=== PATIENT | female | born 1995 | race African-American/Black ===

== ENCOUNTER 2020-04-10 11:21 | Emergency (ER) | payer OTHER, SELFPAY ==
[2020-04-10 11:32] VITALS: BP 132/95; PULSE 98; RESP 16; TEMP 36.7; O2SAT 97
--- NOTE | 2020-04-10 13:14 | ED.GENADULT ---
HPI - General Adult General Chief complaint: Upper Respiratory Infection <Nadine Eid PA-C - Last Filed: 04/10/20 13:24> Stated complaint: lost taste, uri symptoms <Nadine Eid PA-C - Last Filed: 04/10/20 13:24> Time Seen by Provider: 04/10/20 11:49 <LEIDY Mendiola Last Filed: 04/10/20 13:24> Source: patient <LEIDY Mendiola Last Filed: 04/10/20 13:24> Mode of arrival: ambulatory <LEIDY Mendiola Last Filed: 04/10/20 13:24> Limitations: no limitations <LEIDY Mendiola Last Filed: 04/10/20 13:24> History of Present Illness HPI narrative: Patient presents with chief complaint of concern for Covid due to progression of symptoms from runny nose, congestion, slight cough, loss of taste or smell that began on last Wednesday. Patient states that she was due to be Covid tested but the appointment was canceled. Patient denies chest pain, shortness of breath, fever, chills, nausea, vomiting patient states she does not have cough at this time. Patient denies having any pulmonary conditions. Patient denies any other symptoms or concerns. Patient is unsure if she has been in close contact with a Covid positive person. <Nadine Eid PA-C - Last Filed: 04/10/20 13:24> Related Data Home medications: Home Medications Medication Instructions Recorded Confirmed No Home Medications 04/10/20 04/10/20 <LEIDY Mendiola Last Filed: 04/10/20 13:24> Allergies/adverse reactions: Allergies Allergy/AdvReac Type Severity Reaction Status Date / Time [place] Allergy Unknown Other Uncoded 04/10/20 11:36 <LEIDY Mendiola Last Filed: 04/10/20 13:24> Review of Systems Review of Systems: Narrative: CONSTITUTIONAL: Reports loss of taste and smell denies fever, chills, or sweats. EYES: Denies visual changes, redness, or discharge. ENT: Reports rhinorrhea, congestion, denies sore throat, or otalgia. CARDIOVASCULAR: Denies chest pain, palpitations, or edema. RESPIRATORY: Denies current cough or dyspnea at any time. GASTROINTESTINAL: Denies abdominal pain, nausea, vomiting, or diarrhea. GENITOURINARY: Denies dysuria or hematuria. SKIN: Denies rash or itching. MUSCULOSKELETAL: Denies back pain, myalgia, or joint pain NEUROLOGIC: Denies current headache, numbness, dizziness, or weakness. PSYCHIATRIC: Denies anxiety or depression. <Nadine Eid PA-C - Last Filed: 04/10/20 13:24> Exam Narrative: Exam Narrative: GENERAL: Well-appearing, well-nourished, and in no acute distress. HEAD: Normocephalic, atraumatic. EYES: PERRLA and EOMI. ENT: Nares clear, no rhinorrhea or epistaxis. Mucous membranes moist. Oropharynx without tonsillar hypertrophy exudate or other lesions. Bilateral TMs pearly reed nonbulging NECK: Supple. No adenopathy or masses. CHEST: Clear to auscultation. No respiratory distress. No wheezes rales or rhonchi. No tachypnea or wheezing. HEART: Regular rate and rhythm. Normal peripheral pulses. EXTREMITIES: Normal range of motion. No edema. SKIN: Warm, dry, no rash. NEURO: No focal deficits. Alert and oriented x3. PSYCH: Normal mood and affect. <Nadine Eid PA-C - Last Filed: 04/10/20 13:24> Course Vital Signs Vital signs: Vital Signs Temperature 36.7 C 04/10/20 11:32 Pulse Rate 98 04/10/20 11:32 Respiratory Rate 16 04/10/20 11:32 Blood Pressure 132/95 H 04/10/20 11:32 Pulse Oximetry 97 04/10/20 11:32 Temperature 36.7 C 04/10/20 11:32 Pulse Rate 98 04/10/20 11:32 Respiratory Rate 16 04/10/20 11:32 Blood Pressure 132/95 H 04/10/20 11:32 Pulse Oximetry 97 04/10/20 11:32 <LEIDY Mendiola Last Filed: 04/10/20 13:24> Vital Signs Temperature 36.7 C 04/10/20 11:32 Pulse Rate 98 04/10/20 11:32 Respiratory Rate 16 04/10/20 11:32 Blood Pressure 132/95 H 04/10/20 11:32 Pulse Oximetry 97 04/10/20 11:32 Temperature 36.7 C 04/10/20 11:32 Puls
[2020-04-10 22:40] LABS: SARS-CoV-2 RNA PCR Positive
== END 2020-04-10 13:38 | disposition home or self-care (01) ==
PROVIDERS: Physician Assistant; Emergency Provider Emergency Medicine
DX: U07.1 COVID-19 (principal)
CPT/HCPCS: 87635; 87804; 99283; C9803; U0003

== ENCOUNTER 2020-06-15 13:39 | Emergency (ER) | payer SELFPAY ==
--- NOTE | ~2020-06-15 | XR_ITS ---
EXAMINATION: XR chest 1V portable INDICATION: Shortness of breath TECHNIQUE: Portable AP chest at 1530 hours COMPARISON: None available FINDINGS: The lungs are free of acute opacities. There is no pleural effusion or pneumothorax. The ca rdiomediastinal silhouette is normal. The visualized osseous structures are unremarkable. IMPRESSION: 1. No acute cardiopulmonary abnormality. Reviewed, dictated and finalized at location A. [employer]
[2020-06-15 13:53] VITALS: BP 118/67; PULSE 96; RESP 16; TEMP 36.6; O2SAT 100
[2020-06-15 15:18] LABS: Basophils Percent Auto 0.5 % (0.2-1.2); Eosinophils Absolute Auto 0.3 K/mm3 (0-0.3); Eosinophils Percent Auto 2.9 % (0-4.4); Hemoglobin 10.9 g/dL (12.0-15.0); Immature Granulocyte Absolute 0.03 K/mm3 (0.00-0.031); Immature Granulocyte Percent A 0.4 % (0-0.5); Lymphocytes Absolute Auto 2.24 K/mm3 (0.9-3.2); Lymphocytes Percent Auto 26.2 % (18.3-44.2); Mean Corpuscular HGB Conc 31.1 g/dl (32-36); Mean Corpuscular Hemoglobin 25.7 pg (26-34); Mean Corpuscular Volume 82.5 fl (80-100); Mean Platelet Volume 8.4 fl (7.4-10.4); Monocytes Absolute Auto 0.7 K/mm3 (0.1-0.6); Monocytes Percent Auto 8.2 % (2.6-8.5); Neutrophils Absolute Auto 5.3 K/mm3 (1.3-6.7); Neutrophils Percent Auto 61.8 % (45.5-73.1); Platelet Count Result 484 k/mm3 (150-375); Red Blood Count 4.24 M/mm3 (4.2-5.4); Red Cell Distribution Width 14.4 % (11.5-14.5); White Blood Count 8.5 K/mm3 (4.5-10.0)
[2020-06-15] MEDS: KETOROLAC 30 MG/ML VIAL (*BKC) IV PUSH (15:36)
[2020-06-15 15:41] LABS: Alanine Aminotransferase 11 U/L (4-35); Albumin Level 3.9 g/dL (3.5-5.1); Alkaline Phosphatase 76 U/L (38-126); Anion Gap 7 mmol/L (8-16); Aspartate Amino Transferase 24 U/L (14-36); Bilirubin,Total 0.7 mg/dL (0.2-1.3); Blood Urea Nitrogen 8 mg/dL (7-17); CRP 6.2 mg/dL (<1.0); Calcium 9.4 mg/dL (8.4-10.2); Carbon Dioxide 27 mmol/L (22-30); Chloride 105 mmol/L (98-107); Estimated CRCL calculation 104 ml/min; Estimated Glomerular Filt Rate > 60; Glucose 88 mg/dL (65-105); Potassium 3.6 mmol/L (3.4-5.0); Sodium 139 mmol/L (137-145)
[2020-06-15 15:57] LABS: Erythrocyte Sedimentation Rate 25 mm/hr (0-20)
[2020-06-15 15:59] VITALS: BP 115/74; PULSE 70; RESP 12; O2SAT 99
[2020-06-15 16:00] LABS: Amphetamine Screen Urine Negative (Negative); Barbiturate Screen Urine Negative (Negative); Benzodiazepines Screen Urine Negative (Negative); Cannabinoid Screen Urine Negative (Negative); Cocaine Screen Urine Negative (Negative); Methadone Screen Urine Negative (Negative); Opiate Screen Urine Negative (Negative); Phencyclidine Screen Urine Negative (Negative)
[2020-06-15 16:02] LABS: Add Urine Microscopic? YES; Appearance Urine Clear (Clear); Bilirubin Urine Negative (Negative); Blood Urine Negative (Negative); Color Urine Yellow (Yellow); Glucose Urine UA Negative (Negative); Ketones Urine Trace mg/dL (Negative); Leukocyte Esterase Ur Negative LEU/UL (Negative); Mucus Urine Few /lpf; Nitrate Urine Negative (Negative); Protein Urine 1+ mg/dL (Negative); Squamous Epithelial Cell Urine Moderate /hpf (Few); Urobilinogen Urine Negative mg/dL (<2.0); WBC Urine 0-3 /hpf
--- NOTE | 2020-06-15 16:18 | ED.GENADULT ---
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 Been going for the last few weeks got worse over the last few days. History of rheumatoid arthritis, last time was seen and treated for rheumatoid arthritis over 1 year ago. Patient have no insurance to follow-up with a employment office clerk. Patient denies any fever, chills, nausea, vomiting. Related Data Allergies Allergy/AdvReac Type Severity Reaction Status Date / Time [place] Allergy Unknown Other Uncoded 04/10/20 11:36 Review of Systems Review of Systems: Narrative: CONSTITUTIONAL: Denies fever, chills, or sweats. EYES: Denies visual changes, redness, or discharge. ENT: Denies rhinorrhea, congestion, sore throat, or otalgia. CARDIOVASCULAR: Denies chest pain, palpitations, or edema. RESPIRATORY: Denies cough or dyspnea. GASTROINTESTINAL: Denies abdominal pain, nausea, vomiting, or diarrhea. GENITOURINARY: Denies dysuria or hematuria. SKIN: Denies rash or itching. MUSCULOSKELETAL: Denies back pain, joint pain, or myalgia. NEUROLOGIC: Denies headache, numbness, or weakness. PSYCHIATRIC: Denies anxiety or depression. Exam Narrative: Exam Narrative: General appearance: Well-developed, well-nourished Skin: Normal color Head: Normocephalic, nontraumatic Eyes: Clear conjunctiva ENT: Oropharynx normal, ears normal, nose normal Neck: Supple, nontender Chest and respiratory: Airway patent, no respiratory distress, no accessory muscle use Heart: Regular rate/rhythm Abdomen: Soft, nontender, no organomegaly, quiet bowel sounds Vascular: Normal peripheral pulses, normal capillary refill. 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 Labs, sed rate, PCR ordered. Further plan to follow Differential Diagnosis Differential Diagnosis: Rheumatoid arthritis flare, other autoimmune disease, connective tissue disease Vital Signs Vital Signs: Vital Signs Temperature 36.6 C 06/15/20 13:53 Pulse Rate 96 06/15/20 13:53 Respiratory Rate 16 06/15/20 13:53 Blood Pressure 118/67 06/15/20 13:53 Pulse Oximetry 100 06/15/20 13:53 Temperature 36.6 C 06/15/20 13:53 Pulse Rate 70 06/15/20 15:59 Respiratory Rate 12 06/15/20 15:59 Blood Pressure 115/74 06/15/20 15:59 Pulse Oximetry 99 06/15/20 15:59 Lab Data Result diagrams: 06/15/20 15:10 06/15/20 15:10 Labs: Lab Results 06/15/20 06/15/20 06/15/20 Range/Units 15:10 15:10 15:19 WBC 8.5 (4.5-10.0) K/mm3 RBC 4.24 (4.2-5.4) M/mm3 Hgb 10.9 L (12.0-15.0) g/dL Hct 35.0 L (37.0-47.0) % MCV 82.5 (80-100) fl MCH 25.7 L
== END 2020-06-15 16:30 | disposition home or self-care (01) ==
PROVIDERS: Emergency Provider Emergency Medicine
DX: M06.9 Rheumatoid arthritis, unspecified (principal)
CPT/HCPCS: 36415; 71045; 80053; 80307; 81001; 81025; 85025; 85652; 86140; 96374; 99284; J1885

== ENCOUNTER 2020-09-10 11:23 | Emergency (ER) | payer OTHER, SELFPAY ==
[2020-09-10 11:28] VITALS: BP 115/73; PULSE 99; RESP 18; TEMP 36.2; O2SAT 98
--- NOTE | 2020-09-10 12:17 | ED.GENADULT ---
HPI - General Adult General Chief complaint: Skin/Abscess/Foreign Body Stated complaint: right facial wound Time Seen by Provider: 09/10/20 11:35 Source: patient Mode of arrival: ambulatory Limitations: no limitations History of Present Illness HPI narrative: Patient presents with chief complaint of [place] coalesced lesions to her right cheek. Patient states that it started off as a small bump but has increased in size. Patient reports yellow crusting. Patient reports some mild itching. Patient denies fever, chills, nausea, vomiting, diarrhea or any other symptoms. Patient states that this is happened in the past she was prescribed antibiotic. Patient denies any other symptoms or concerns. Patient denies known history of MRSA. Related Data Home Medications Medication Instructions Recorded Confirmed etanercept [Enbrel] 25 mg SUBCUT WEEKLY 09/10/20 prednisone 1 mg PO DAILY 09/10/20 Allergies Allergy/AdvReac Type Severity Reaction Status Date / Time [place] Allergy Unknown Other Uncoded 04/10/20 11:36 Review of Systems Review of Systems: Narrative: CONSTITUTIONAL: Denies fever, chills, or sweats. EYES: Denies visual changes, redness, or discharge. ENT: Denies rhinorrhea, congestion, sore throat, or otalgia. CARDIOVASCULAR: Denies chest pain, palpitations, or edema. RESPIRATORY: Denies cough or dyspnea. GASTROINTESTINAL: Denies abdominal pain, nausea, vomiting, or diarrhea. GENITOURINARY: Denies dysuria or hematuria. SKIN: Reports crusted lesion denies rash or itching. MUSCULOSKELETAL: Denies back pain, joint pain, or myalgia. NEUROLOGIC: Denies headache, numbness, dizziness, or weakness. PSYCHIATRIC: Denies anxiety or depression. [facility] Social History Social History Gender identity (if verbalized by the patient): Female Exam Narrative: Exam Narrative: GENERAL: Well-appearing, well-nourished, and in no acute distress. HEAD: Normocephalic, atraumatic. Coalesced yellow crusted lesions to right cheek. With surrounding swelling. EYES: PERRLA and EOMI. ENT: Nares clear, no rhinorrhea or epistaxis. Mucous membranes moist. Oropharynx without tonsillar hypertrophy exudate or other lesions. Bilateral TMs pearly reed nonbulging NECK: Supple. No adenopathy or masses. CHEST: Clear to auscultation. No respiratory distress. No wheezes rales or rhonchi HEART: Regular rate and rhythm. No murmur heard. Normal peripheral pulses. EXTREMITIES: Normal range of motion. No edema. SKIN: Warm, dry, no rash. NEURO: No focal deficits. Alert and oriented x3. PSYCH: Normal mood and affect. Course Vital Signs Vital signs: Vital Signs Temperature 97.1 F L 09/10/20 11:28 Pulse Rate 99 09/10/20 11:28 Respiratory Rate 18 09/10/20 11:28 Blood Pressure 115/73 09/10/20 11:28 Pulse Oximetry 98 09/10/20 11:28 Temperature 97.1 F L 09/10/20 11:28 Pulse Rate 99 09/10/20 11:28 Respiratory Rate 18 09/10/20 11:28 Blood Pressure 115/73 09/10/20 11:28 Pulse Oximetry 98 09/10/20 11:28 Medical Decision Making MDM Narrative Medical decision making narrative: Discussed with patient impetigo findings. Need to follow-up with primary care for reevaluation. Discussed possible antibacterial soap and applying. Discussed avoiding touching the area injection in the areas due to contagiousness. Patient verbalized understanding and denies any other questions or concerns. Patient denies chance of due to abstinence. Discussed with patient that if there is any chance we will need to do test as Bactrim is not recommended in . Patient denies need to check some . Vital Signs Vital Signs: Vital Signs Temperature 97.1 F L 09/10/20 11:28 Pulse Rate 99 09/10/20 11:28 Respiratory Rate 18 09/10/20 11:28 Blood Pressure 115/73 09/10/20 11:28 Pulse Oximetry 98 09/10/20 11:28 Temperature 97.1 F L 09/10/20 11:28 Pulse Rate 9
[2020-09-10 12:50] VITALS: RESP 16
== END 2020-09-10 12:50 | disposition home or self-care (01) ==
PROVIDERS: Emergency Provider Emergency Medicine; PCP Emergency Medicine
DX: L01.00 Impetigo, unspecified (principal)
CPT/HCPCS: 99283

== ENCOUNTER 2021-06-11 19:32 | Emergency (ER) | payer OTHER, SELFPAY ==
[2021-06-11 19:53] VITALS: BP 136/84; PULSE 94; RESP 16; TEMP 37.4; O2SAT 99
--- NOTE | 2021-06-11 19:59 | ED.FEMALEGU ---
HPI - Female Genitourinary General Chief complaint: Urogenital-Female Stated complaint: uti Time Seen by Provider: 06/11/21 19:54 Source: patient and RN notes reviewed Mode of arrival: ambulatory Limitations: no limitations History of Present Illness HPI Narrative: Patient presents today with a 2-day history of white discharge that, smells like milk , external genital itching. Denies any urinary symptoms to include dysuria or hematuria. 2-1/2 weeks ago she had similar symptoms and use Monistat, which help with her symptoms. She has not tried any eore-tub-fzekswe medication for symptoms prior to arrival. She was MD elicited complaint: vaginal discharge Related Data Home Medications Medication Instructions Recorded Confirmed Xeljanz 06/11/21 Allergies Allergy/AdvReac Type Severity Reaction Status Date / Time [place] Allergy Unknown Other Uncoded 06/11/21 19:45 Review of Systems Review of Systems: CONSTITUTIONAL: Denies body aches, fever, chills, or sweats. EYES: Denies visual changes, redness, or discharge. ENT: Denies rhinorrhea, congestion, sore throat, or otalgia. CARDIOVASCULAR: Denies chest pain, palpitations, or edema. RESPIRATORY: Denies cough or dyspnea. GASTROINTESTINAL: Denies abdominal pain, nausea, vomiting, or diarrhea. GENITOURINARY: Denies dysuria or hematuria.+ Vaginal discharge SKIN: Denies rash, itching, or wounds. MUSCULOSKELETAL: Denies back pain, joint pain, or myalgia. NEUROLOGIC: Denies headache, numbness, tingling, or weakness. PSYCH: Denies depression or anxiety. [facility] Social History Social History Gender identity (if verbalized by the patient): Female Comments At time of signature, I have reviewed and agree with nursing past medical, surgical, social and family history unless otherwise noted. Please see nursing chart for further information. There is no relevant family history pertinent to the presenting complaint Exam Narrative: GENERAL: Well-appearing, well-nourished, and in no acute distress. HEAD: Normocephalic, atraumatic. EYES: EOMI. No redness or drainage. Conjunctivae normal. ENT: Mucous membranes pink and moist. NECK: Normal AROM. CHEST: No respiratory distress. : External genitalia is mildly erythematous and irritated. Mild white thin vaginal discharge noted. MUSCULOSKELETAL: No bony tenderness. EXTREMITIES: Normal range of motion. No edema. SKIN: Warm, dry, no rash. Capillary refill normal. Normal skin turgor. NEURO: No focal deficits. Alert and oriented x3. Gait steady. PSYCH: Normal affect. No signs of depression or anxiety. Course Vital Signs Vital signs: Vital Signs Temperature 99.4 F 06/11/21 19:53 Pulse Rate 94 06/11/21 19:53 Respiratory Rate 16 06/11/21 19:53 Blood Pressure 136/84 06/11/21 19:53 Pulse Oximetry 99 06/11/21 19:53 Temperature 99.4 F 06/11/21 19:53 Pulse Rate 94 06/11/21 19:53 Respiratory Rate 16 06/11/21 19:53 Blood Pressure 136/84 06/11/21 19:53 Pulse Oximetry 99 06/11/21 19:53 Reviewed. Pt has been instructed to follow up with her PCP regarding her elevated blood pressure today. MDM - Female Genitourinary Differential Diagnosis Differential diagnosis: Likely bacterial vaginosis and other (Madie) Lab Data Attestation: I reviewed the patient's lab results. Labs: Urine Glucose Negative Reference Range: Negative Urine Bilirubin Negative Reference Range: Negative Urine Ketone Negative Reference Range: Negative Urine Specific [place] 1.030 Reference Range:1.001-1.035 Urine Blood Negative
== END 2021-06-11 20:14 | disposition home or self-care (01) ==
PROVIDERS: Emergency Provider Nurse Practitioner
DX: B37.3 Candidiasis of vulva and vagina (principal); M06.9 Rheumatoid arthritis, unspecified
CPT/HCPCS: 81003; 99213; G0463

== ENCOUNTER 2022-01-01 15:04 | Emergency (ER) | payer OTHER, SELFPAY ==
[2022-01-01 15:22] VITALS: BP 113/73; PULSE 73; RESP 18; TEMP 37; O2SAT 100
--- NOTE | 2022-01-01 15:52 | ED.URI ---
HPI - URI/Sore Throat General Chief Complaint: Upper Respiratory Infection Stated Complaint: mouth pain/uri Time Seen by Provider: 01/01/22 15:55 Source: patient and RN notes reviewed Mode of arrival: ambulatory Limitations: no limitations History of Present Illness HPI Narrative: 26-year-old female presents with concern for 2 to 3-month history of sinus pressure, drainage, pain. She reports foul taste in her mouth, foul smell. She reports left jaw and cheek pain. She denies dental trauma or pain. She reports she is taken Tylenol and ibuprofen. She denies take any cold medications. She denies fever, bodies, chills, sweats, cough or shortness of breath. MD elicited complaint: nasal congestion and sinus pain Related Data Home Medications Medication Instructions Recorded Confirmed Jennifer 06/11/21 Allergies Allergy/AdvReac Type Severity Reaction Status Date / Time [place] Allergy Severe Other Uncoded 01/01/22 15:39 Review of Systems Review of Systems: CONSTITUTIONAL: Denies malaise, chills, sweats, or fever. EYES: Denies visual changes, redness, or discharge. ENT: Reports rhinorrhea, congestion, sinus pain, facial and dental pain Denies otalgia and sore throat. CARDIOVASCULAR: Denies chest pain, palpitations, or edema. RESPIRATORY: Denies cough. Denies dyspnea. GASTROINTESTINAL: Denies abdominal pain, nausea, vomiting, diarrhea SKIN: Denies rash or itching. MUSCULOSKELETAL: Denies myalgia. NEUROLOGIC: Denies headache. All systems reviewed & are unremarkable except as noted in HPI and below PMFSH Social History Social History Gender identity (if verbalized by the patient): Female Comments At time of signature, agree with nursing past medical, surgical, social and family history. There is no relevant family history pertinent to the presenting complaint Exam Narrative: GENERAL: Well-appearing, well-nourished, and in no acute distress. HEAD: Normocephalic EYES: PERRLA, conjunctivae clear ENT: Nares clear, turbinates edematous and erythematous, purulent discharge. Mucous membranes moist. TM pearly reed with dull light reflex bilaterally; no tragal tenderness. Oropharynx not erythematous without lesions. Tonsils not enlarged and without exudate, no drooling, no hoarseness, no trismus, uvula midline. NECK: Supple. No lymphadenopathy CHEST: Clear to auscultation, breath sounds equal. No wheezing, rhonchi, rales, or stridor. No respiratory distress, speaks in full sentences. HEART: Regular rate and rhythm. No murmur heard. SKIN: Warm, dry, no rash. NEURO: Alert and oriented x3. PSYCH: Normal mood and affect Course Course Emergency Course: Patient is aware of diagnosis, understands and agrees to treatment plan. Anticipatory guidance given. Patient agrees to follow-up as directed and is aware of reasons to seek care at the emergency department. Portions of this record may have been created with voice recognition software Level of Care: Express Care Visit Vital Signs Vital signs: Vital Signs Temperature 98.6 F 01/01/22 15:22 Pulse Rate 73 01/01/22 15:22 Respiratory Rate 18 01/01/22 15:22 Blood Pressure 113/73 01/01/22 15:22 Pulse Oximetry 100 01/01/22 15:22 Oxygen Delivery Room Air 01/01/22 15:22 Temperature 98.6 F 01/01/22 15:22 Pulse Rate 73 01/01/22 15:22 Respiratory Rate 18 01/01/22 15:22 Blood Pressure 113/73 01/01/22 15:22 Pulse Oximetry 100 01/01/22 15:22 Oxygen Delivery Room Air 01/01/22 15:22 Reviewed. MDM - URI/Sore Throat MDM Narrative Medical decision making narrative: Differential diagnosis considered: Rabago virus, strep pharyngitis, allergic rhinitis, upper respiratory tract infection, sinusitis, rhinosinusitis, nasopharyngitis. viral pharyngitis, otitis media, otitis externa, pneumonia, bronchitis, viral cough syndrome, viral syndrome, and influenza. Exam findings show no acute concerns
== END 2022-01-01 16:06 | disposition home or self-care (01) ==
PROVIDERS: Emergency Provider Nurse Practitioner
DX: J01.90 Acute sinusitis, unspecified (principal); Z86.16 Personal history of COVID-19; M06.9 Rheumatoid arthritis, unspecified; E03.9 Hypothyroidism, unspecified
CPT/HCPCS: 99213; G0463

== ENCOUNTER 2022-02-01 21:26 | Emergency (ER) | payer OTHER, BC, MEDICAID, SELFPAY ==
[2022-02-01 21:36] VITALS: BP 124/66; PULSE 106; RESP 18; TEMP 36.7; O2SAT 98
--- NOTE | 2022-02-01 22:12 | ED.EYEPROB ---
HPI - Eye Problem General Chief complaint: Eye Problems Stated complaint: cloudy vision after taking contacts out. Time Seen by Provider: 02/01/22 21:33 History of Present Illness HPI Narrative: 26-year-old female presented the emergency room complaints of blurred vision in her right eye. Patient states she put in old contact lens, and approximately 2 hours later began to develop pain in her right eye. Patient states she removed her contact lens and was experiencing cloudy vision. Endorses photophobia. Related Data Home Medications Medication Instructions Recorded Confirmed Xeljanz 06/11/21 Allergies Allergy/AdvReac Type Severity Reaction Status Date / Time [place] Allergy Severe Other Uncoded 02/01/22 21:46 Review of Systems Review of Systems: CONSTITUTIONAL: Denies fever, chills, or sweats. EYES: Vision changes to right eye ENT: Denies rhinorrhea, congestion, sore throat, or otalgia. CARDIOVASCULAR: Denies chest pain, palpitations, or edema. RESPIRATORY: Denies cough or dyspnea. GASTROINTESTINAL: Denies abdominal pain, nausea, vomiting, or diarrhea. GENITOURINARY: Denies dysuria or hematuria. SKIN: Denies rash or itching. MUSCULOSKELETAL: Denies back pain, joint pain, or myalgia. NEUROLOGIC: Denies headache, numbness, dizziness, or weakness. PSYCHIATRIC: Denies anxiety or depression. [facility] Social History Social History Gender identity (if verbalized by the patient): Female Exam Narrative: GENERAL: Well-appearing, well-nourished, no physical limitations, and in no acute distress. HEAD: Normocephalic, atraumatic. EYES: PERRLA and EOMI. corneal abrasion noted to right lower corner of the right eye CHEST: Clear to auscultation. No respiratory distress. No wheezes rales or rhonchi. No tenderness. HEART: Regular rate and rhythm. No murmur heard. Normal peripheral pulses. ABDOMEN: Soft, nontender, nondistended, normal active bowel sounds. SKIN: Warm, dry, no rash. No noted wounds NEURO: No focal deficits. Alert and oriented x3. MAEW. CN's II-XI intact bilaterally, normal gait PSYCH: Cooperative. Normal mood and affect. Course Vital Signs Vital signs: Vital Signs Temperature 36.7 C 02/01/22 21:36 Pulse Rate 106 H 02/01/22 21:36 Respiratory Rate 18 02/01/22 21:36 Blood Pressure 124/66 02/01/22 21:36 Pulse Oximetry 98 02/01/22 21:36 Oxygen Delivery Room Air 02/01/22 21:36 Temperature 36.7 C 02/01/22 21:36 Pulse Rate 106 H 02/01/22 21:36 Respiratory Rate 18 02/01/22 21:36 Blood Pressure 124/66 02/01/22 21:36 Pulse Oximetry 98 02/01/22 21:36 Oxygen Delivery Room Air 02/01/22 21:36 Procedures Other Procedure Procedure 1: Other Procedure: Right eye anesthetized with tetracaine. Fluorescein reuptake was noted right lower quadrant of the eye between the 4:00 and 6:00 positions Discharge Plan Discharge Clinical Impression: Corneal abrasion Patient Disposition: Home, Self-Care Condition: Stable Instructions: Antibiotic Form Prescriptions: New polymyxin B sulf-trimethoprim 10,000 unit- 1 mg/mL drops 1 drp RIGHT EYE Q3H 7 Days Qty: 10 0RF Rx Instructions: while awake; do not exceed 6 doses in 24 hours hydrocodone-acetaminophen 5-325 mg tablet 1 tablet PO Q8H PRN (Reason: pain) Qty: 14 0RF No Action Xeljanz methylprednisolone [Medrol (Guillermo)] 4 mg tablets,dose pack See Rx Instructions .ROUTE .COMPLEX Qty: 21 0RF Rx Instructions: orally per package directions amoxicillin-pot clavulanate 875-125 mg tablet 1 tablet PO Q12H 10 Days Qty: 20 0RF Follow-up/Referrals: PHYSICIAN,ACTUARIAL TRAINEE [Primary Care Provider] - Time of Disposition: 22:19
[2022-02-01] MEDS: TETANUS,DIPHTHERIA,AC PERTUSSIS ADULT (0.5 ML) BOOSTRIX IM (22:31)
== END 2022-02-01 22:36 | disposition home or self-care (01) ==
PROVIDERS: Emergency Provider Nurse Practitioner Family
DX: S05.01XA Injury of conjunctiva and corneal abrasion without foreign body, right eye, initial encounter (principal); Y29.XXXA Contact with blunt object, undetermined intent, initial encounter; Z23 Encounter for immunization
CPT/HCPCS: 90471; 90715; 99283; A9270